=== PATIENT | female | born 1960 | race African-American/Black ===

== ENCOUNTER 2017-07-27 13:30 | Inpatient (IN) | payer OTHER ==
[~2017-07-27] VITALS: Ht 160 cm; Wt 78.9 kg
[2017-07-27] MEDS ORDERED: FORTAMET1000 MG (13:56)
[2017-07-27] MEDS ORDERED: CLARITIN10 M2 (13:56)
[2017-07-27] MEDS ORDERED: VASOTEC5 MG (13:57)
== END 2017-07-31 20:59 | disposition home or self-care (01) | DRG 639 ==
LOC: ER 13:30 → SEC-K 17:19 → MEDI 21:21
PROC: 4A033R1 Measurement of Arterial Saturation, Peripheral, Percutaneous Approach (ICD-10-PCS; principal; 2017-07-27)
DX: E11.65 Type 2 diabetes mellitus with hyperglycemia (principal); I10 Essential (primary) hypertension; E86.0 Dehydration; K29.00 Acute gastritis without bleeding

== ENCOUNTER 2022-10-23 12:36 | Emergency (ER) | payer OTHER ==
[~2022-10-23] VITALS: Ht 160 cm; Wt 54.9 kg
[~2022-10-23 12:36] MED LIST: CLARITIN10 M2; FORTAMET1000 MG; VASOTEC5 MG
[2022-10-23] MEDS ORDERED: LIPITOR40 MG PO (13:36)
[2022-10-23] MEDS ORDERED: HUMALOG100 UNIT/2 SQ (13:37)
[2022-10-23 15:13] LABS: HEMATOCRIT 40.8 % (36.0-45.00); HEMOGLOBIN 13.3 g/dL (12.0-15.00); MEAN CELL VOLUME 85.9 fL (80.00-100.00); MEAN CORPUSCULAR HGB CONC 32.6 g/dl (32.0-36.0); PLATELET COUNT 255 K/uL (150-450); RED BLOOD COUNT 4.75 M/uL (4.00-6.00); RED CELL DISTRIBUTION WIDTH 14.9 % (11.5-14.5)
== END 2022-10-23 19:23 | disposition home or self-care (01) ==
LOC: ER 12:36
PROVIDERS: Emergency Medicine
DX: E11.65 Type 2 diabetes mellitus with hyperglycemia (principal); Z79.4 Long term (current) use of insulin; Z79.84 Long term (current) use of oral hypoglycemic drugs